=== PATIENT | male | born 1975 | race Caucasian/White ===

== ENCOUNTER 2024-02-05 06:27 | Day surgery (SDC) | payer BC, SELFPAY ==
[2024-02-05] VITALS (11 sets, daily range): BP systolic 124–154; BP diastolic 68–95; BMI 37.5
[2024-02-05] MEDS: NORMOSOL-R 1000 IV (10:58)
[2024-02-05] MEDS: TYLENOL 1000 MG PO (10:58)
--- NOTE | 2024-02-05 14:47 | W.SUR.PREOP ---
Pre-Operative Surgical Note
-
I have examined this patient prior to the performance of the scheduled procedure.
The patient's condition is unchanged from the time of the current History and
Physical and the patient is able to undergo the scheduled procedure.
--- NOTE | 2024-02-05 14:47 | W.IMMPOSTOP ---
Surgical Immed Post Op Note
-
Primary Surgeon: Tom Reina MD
Assisting Surgeon: None
Pre-op Diagnosis: Right femoral hernia
Post-op Diagnosis: Same
Procedure Performed: Robotic right femoral hernia repair with mesh
Anesthesia Type: General
Specimen / Cultures: None
Estimated Blood Loss: 11 cc
Complications: Injury to a right inferior epigastric vein. Suture-ligated
Operative Findings: Significant amount of preperitoneal fat which made dissection over the bladder a little bit challenging, there was an injury to the right inferior epigastric vein given its location this was likely an accessory vein. This was
suture-ligated. We achieved a critical view of the myopectineal orifice. A small femoral hernia was identified and the contents reduced. There was also a small cord lipoma that was reduced and resected. There was no indirect or direct
components. The floor was reinforced with an extra-large Bard 3D max mid weight mesh
--- NOTE | 2024-02-05 14:51 | OR.RPT ---
Operative Report
Operative Report
Patient Name: Vadim Multani Jr.
: 1975
Date of Operation: 02/05/2024
Preoperative Diagnosis: Right femoral hernia
Postoperative Diagnosis: Same
Procedure(s):
Robotic right femoral hernia Repair with mesh, (EKATERINA approach)
Surgeon(s):
Dr. Reina
Mold Repair Technician(s):
GAYATHRI Jones
Anesthesia: General
Estimated Blood Loss: 11 cc
Urine Output: None
Drains/Lines/Implants: X-Large 3D Max Bard mid weight mesh
Specimens: None
Indication for surgery: The patient has a history of groin pain and noted to have a right femoral hernia on ultrasound imaging. Unable to appreciate on physical exam due to body habitus. Following review of therapeutic options they has elected to
undergo a minimally invasive repair.
Operative Findings: Significant amount of preperitoneal fat which made dissection, particularly over the bladder a little bit challenging, there was an injury to the right inferior epigastric vein given its location this was likely an accessory
bundle vein. This was suture-ligated. We achieved a critical view of the myopectineal orifice. A small femoral hernia was identified and the contents reduced. There was also a small cord lipoma that was reduced and resected. There was no
indirect or direct components. The floor was reinforced with an extra-large Bard 3D max mid weight mesh
Details of the operation:
The patient was brought to the Operating Room and placed in the supine position with the arms tucked. IV antibiotics were infused and Venodyne stockings placed. Following uneventful induction of general endotracheal anesthesia, an orogastric tube
were placed. The abdomen was prepped and draped in the usual sterile fashion. The abdomen was entered using a Veress technique which required 4 passes, pneumoperitoneum to 15 mmHg was obtained without difficulty. The patient was placed in roughly
15 degrees Trendelenburg position. An 8mm trochar was passed through the abdominal wall roughly 20 cm cephalad to the inguinal canal. We then confirmed that no inadvertent injury was made while passing the trocar or Veress needle. We then placed
two additional 8 mm ports in the left upper and right upper quadrants. We then docked the robot with a Prograsper in the left hand port and monopolar scissors in the right. No hernias were readily apparent at the start of the case. We then began
by creating a flap at the level of the ASIS laterally working our way medially to the medial umbilical fold. Staying onto the peritoneum we were able to circumferentially dissect the peritoneum and and peel it off of the underlying spermatic cord
and testicular vessels, taking care to preserve them. Medially we identified the midline pubis as well as Manoj's ligament and ensured to dissect 2 cm below the pubic rim over the bladder. During her dissection there was a small sharp injury to a
fairly sizable vein running fairly medially. This was controlled very quickly with pressure from the prograsper, which I then suture-ligated. After further dissection this appeared to be an accessory inferior epigastric bundle of which we likely
injured the vein. After exposure of the entire myopectineal orifice we identified and reduced: A small femoral hernia, and a small cord lipoma which was dissected back, amputated and removed. There were no direct or indirect inguinal hernias
We then fixated an X-large 3D max mid weight mesh with a 2-0 Vicryl stitch at coopers medially and superior laterally. A mondragon mortise vessel was identified and preserved. The flap was then closed with a running 2-0 barbed monocryl suture ensuring
that the tail was cut flush with the medial fat pad so that no barbs were exposed. During the closure of the flap an Angiocath was inserted and 20 cc of quarter percent Marcaine was instilled. The area in the flap cavity was then evacuated of air
confirming that the mesh was flush and there were no folds. A small rent in the peritoneum was noted and closed with 2-0 Vicryl. All needles and instruments were then removed and the robot was undocked. The abdomen was then desufflated, and
pneumoperitoneum evacuated. All skin sites were then closed with 4-0 Monocryl followed by Dermabond. Counts were correct and overall, the patient tolerated the procedure well and was taken to the Recovery Room postoperatively in stable condition.
I was the attending physician and performed the procedure with assistance from the PA above. The assistance of Julia Oakes was required due to the complexity of the procedure. During the procedure Julia assisted with retraction, resection, and
closure of the wound. I was present for all portions of the case except for skin closure.
Tom Reina MD
[2024-02-05] MEDS: DILAUDID 0.25 MG IV (15:02)
--- NOTE | 2024-02-05 16:25 | SUR.PHASEI ---
Dr. Naidu notified about sat's dropping into the mid 80's. IS given. Sat's range 86-96%. Awake, has CPAP at home and uses it. Okay to move to [facility].
== END 2024-02-05 17:52 | disposition home or self-care (01) ==
LOC: SDS 06:27
PROVIDERS: ATTENDING PHYSICIAN Surgery
DX: K41.90 Unilateral femoral hernia, without obstruction or gangrene, not specified as recurrent (principal)
CPT/HCPCS: 49550; C1781

== ENCOUNTER 2025-01-10 19:25 | Emergency (ER) | payer BC, SELFPAY ==
[2025-01-10 19:27] VITALS: BP 166/98
[2025-01-10 19:56] LABS: Lactic Acid 0.6 mmol/L (0.7-2.0)
[2025-01-10 20:03] LABS: ALT (SGPT) 26 U/L (0-50); AST (SGOT) 25 U/L (17-59); Albumin 4.3 g/dl (3.5-5.0); Alkaline Phosphatase 65 U/L (38-126); Blood Urea Nitrogen 11 mg/dl (9-20); Calcium 9.3 mg/dl (8.4-10.2); Carbon Dioxide 29 mmol/L (22-30); Chloride 103 mmol/L (98-107); Glucose 109 mg/dl (70-99); Lipase 44 U/L (23-300); Potassium 4.1 mmol/L (3.5-5.1); Sodium 141 mmol/L (135-145); Total Protein 7.4 g/dl (6.3-8.2); eGFR > 60.00
[2025-01-10 20:14] LABS: % Basophils 0.2 % (0-2); % Eosinophils 0.5 % (0-6); % Immature Granulocytes 0.3 % (0-0.5); % Lymphocytes 11.2 % (20.5-51.1); % Monocytes 8.8 % (1.7-9.3); Absolute Eosinophils 0.1 10^3/uL (0-0.7); Absolute Lymphocytes 1.7 10^3/uL (1.2-3.4); Absolute Monocytes 1.4 10^3/uL (0.1-0.6); Absolute Neutrophils 12.2 10^3/uL (1.4-6.5); Hematocrit 40.9 % (39.0-52.0); Hemoglobin 13.8 g/dL (13.0-18.0); Mean Corp Hgb Conc. 33.7 g/dL (33.0-37.0); Mean Corpuscular Volume 91.9 fL (80.0-94.0); Nucleated Red Blood Cells % 0 % (-); Platelet Count 283 10^3/uL (130-400); Red Blood Cell Count 4.45 10^6/uL (4.70-6.10); Red Cell Dist. Width 13.1 % (11.5-14.5); White Blood Cell Count 15.5 10^3/uL (4.8-10.8)
--- NOTE | 2025-01-10 23:03 | ED.GENMED ---
History of Present Illness
General
Chief Complaint: Abdominal Pain
Source: patient
Exam Limitations: none
Time Seen by Provider: 01/10/25 22:58
Nursing documentation reviewed up to this point in time: agreed with
History of Present Illness
History of Present Illness:
49-year-old male with a past medical history of hyperlipidemia, Perez's esophagus, IBS, ADHD who presents emergency department today with concerns of right-sided abdominal pain starting yesterday. Patient reports that he went to the [facility]
yesterday when he started to feel right-sided abdominal cramping. He states he felt like he had a bowel movement however when he went to the bathroom, did not have any bowel movements. He denies any diarrhea. Patient states that the pain got
slightly better however when he went home that night, the pain returned he had trouble sleeping at night due to the pain. He woke up this with the pain persisted. He went to urgent care and was sent here right away for further evaluation. Patient
states that he has had intermittent subjective fevers as well as chills. Patient has had a right femoral hernia repair in the past with denies any other intra-abdominal surgeries. Patient denies any burning with urination, dysuria, flank pain.
Patient denies any sick contacts. Patient is a travel to the country. Patient denies any chest pain or shortness of breath. Patient denies any swelling or pain in his lower extremities.
Review of Systems
Review of Systems
All Other Systems: ROS reviewed and negative except as documented in HPI and ROS
Phy Exam
Physical Exam
Physical Exam:
General: Patient is well appearing and in no acute distress; non-toxic
Skin: Warm and dry, no rashes or lesions
Head: Normocephalic, atraumatic
Eyes: Sclera non-icteric. EOMs intact.
Cardiac: Regular rate and rhythm, no murmur
Pulm: Normal respiratory effort
Abdomen: Periumbilical abdominal tenderness palpation, right lower quadrant tenderness palpation, no rebound tenderness, guarding present. No CVA tenderness bilaterally.
Neuro: CN II-XII intact, no focal neurologic deficits.
Psychiatric: Appropriate mood and affect.
Course
Orders/Labs/Results
Orders:
Orders
01/10/25 19:34
Complete Blood Count/With Diff Urgent
Lactic Acid Urgent
01/10/25 19:35
Comprehensive Metabolic Panel Urgent
Lipase Urgent
01/10/25 23:10
0.9% Sodium Chloride 1000 ml [Nss] 1,000 ml IV BOLUS
Ketorolac [Toradol] 30 mg IV NOW STA
01/10/25 23:11
CT Abd/pelvis W Iv Cont Urgent
Comment:
Reason For Exam: RLQ ab pain
01/11/25 01:20
Lactic Acid Urgent
01/11/25 01:37
Amoxicillin 875 mg/Clav 125 mg [Augmentin 875 mg/125 mg] 1 tablet PO NOW STA
Abnormal Lab Results
01/10/25 01/10/25
19:34 19:35
WBC 15.5 H 10^3/uL
(4.8-10.8)
RBC 4.45 L 10^6/uL
(4.70-6.10)
Absolute Neuts (auto) 12.2 H 10^3/uL
(1.4-6.5)
Absolute Monos (auto) 1.4 H 10^3/uL
(0.1-0.6)
Neutrophils % 79.0 H %
(42.2-75.2)
Lymphocytes % 11.2 L %
(20.5-51.1)
Creatinine 0.6 L mg/dL
(0.7-1.3)
Glucose 109 H mg/dl
(70-99)
Lactic Acid 0.6 L mmol/L
(0.7-2.0)
01/10/25 19:34
01/10/25 19:35
Vital Signs
Initial and Last Documented VS:
Initial Vital Signs
Temp Pulse Resp BP Pulse Ox
99.9 F 85 20 166/98 99
01/10/25 19:27 01/10/25 19:27 01/10/25 19:27 01/10/25 19:27 01/10/25 19:27
Last Documented Vital Signs
Temp Pulse Resp BP Pulse Ox
99.0 F 80 18 145/63 95
01/10/25 23:45 01/11/25 01:30 01/11/25 01:30 01/11/25 01:30 01/11/25 01:30
MDM/Problems Addressed
Differential Diagnosis Includes:
Differentials include appendicitis, gastritis, biliary colic/acute cholecystitis, IBS exacerbation, constipation
MDM/Problems Addressed:
49-year-old male presents emergency department with concerns of right lower quadrant abdominal pain, history as above. Will give IV fluids and a dose of Toradol and reassess. Will send for CAT scan. Leukocytosis noted.
CT scan reveals colitis in a pattern that may suggest ischemia. Highly doubt ischemic colitis and mesenteric ischemia considering patient has no rectal pain, no diarrhea, and has a normal lactic acid. Considering patient is stable, afebrile, will
discharge oral antibiotics. Patient stable for discharge. Augmentin sent to pharmacy. Case and treatment plan reviewed with my attending.
Chronic conditions affecting care:
ibs, migraines, adhd
*Pulse Oximetry
Patient hypoxic: no
*Critical Care Note
Total Time (30-74mins, 75-104mins- exclusive of procedures): Not Applicable
ED Attending Note
-
Portions of this chart may have been created with voice recognition software.� Occasional wrong word or��sound alike� substitutions may have occurred due to the inherent limitations of voice recognition software.
Discharge Plan
Departure
Patient Disposition: Home (Routine Discharge)
Date of Disposition: 01/11/25
Time of Disposition: 01:39
Patient with high blood pressure during this ER visit?: Yes
Condition: Good
Discharge Problem:
Right sided colitis
Instructions: Colitis - Discharge instructions, BLOOD PRESSURE
Prescriptions:
New
amoxicillin-pot clavulanate 875-125 mg tablet
1 tab PO BID 10 Days Qty: 20 0RF
No Action
multivitamin Tablet
1 tab PO DAILY
cetirizine [Aller-Ginny] 10 mg Tablet
10 mg PO DAILY
ibuprofen 800 mg Tablet
800 mg PO Q6H PRN (Reason: pain)
dextroamphetamine-amphetamine [Adderall] 10 mg Tablet
10 mg PO BID
omeprazole 40 mg Capsule,Delayed Release(Dr/Ec)
40 mg PO DAILY
hyoscyamine sulfate 0.125 mg Tablet
0.125 mg PO Q6H PRN (Reason: IBS)
Excedrin Migraine 250-250-65 mg Tablet
2 tab PO Q6H PRN (Reason: migraine)
diltiazem HCl 240 mg Tablet Extended Release 24 Hr
240 mg PO DAILY
rosuvastatin 5 mg Tablet
5 mg PO DAILY
guanfacine 3 mg Tablet Extended Release 24 Hr
3 mg PO DAILY
melatonin 10 mg Tablet
10 mg PO HS
bupropion HCl 450 mg Tablet Extended Release 24 Hr
450 mg PO DAILY
gabapentin 900 mg Tablet Extended Release 24 Hr
900 mg PO DAILY
Super C
1 tab PO DAILY
acetaminophen [acetaminophen] 325 mg tablet
650 mg PO Q6HPRN PRN (Reason: mild pain) Qty: 14 0RF
ibuprofen 600 mg tablet
600 mg PO Q6H PRN (Reason: pain) Qty: 14 0RF
Referrals:
Katheryn Young NP [Family Provider] -
Activity Restrictions/Additional Instructions:
Your CAT scan revealed a right sided colitis. Your lactic acid is normal.
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 Please schedule a follow-up appointment.
Augmentin, antibiotic, has been sent to pharmacy. Please take 1 tablet twice daily for 10 days.
PLEASE RETURN EMERGENCY DEPARTMENT SHOULD YOU DEVELOP RECTAL BLEEDING, DARK TARRY STOOLS, FEVERS OR CHILLS, ACUTE NEGATIVE PAIN, CHEST PAIN, SHORTNESS OF BREATH, DIZZINESS, LIGHTHEADEDNESS, OR ANY OTHER SIGNS OR SYMPTOMS WORRISOME TO YOU.
Interventions
Interventions:
*Risk Screen - Suicide Last Done: 01/11/25 01:57
*General Assessment Last Done: 01/10/25 19:27
*Neglect/Abuse Screening Last Done: 01/11/25 01:57
*ED- Fall Risk Assessment Last Done: 01/11/25 01:57
*ED COVID-19 Vaccine History Last Done: 01/11/25 01:57
*Nursing Disposition Last Done: 01/11/25 01:57
EE-Vesodl-Czunpqieme Assessment Last Done: 01/10/25 23:46
Discharge Date and Time
Discharge Date/Time: 01/11/25 01:58
Print Language: UPPER SORBIAN
[2025-01-10 23:28] VITALS: BP 173/75
[2025-01-10] MEDS: NSS 1000 IV (23:33)
[2025-01-10] MEDS: TORADOL 30 MG IV (23:35)
[2025-01-10 23:45] VITALS: BMI 36.5
[2025-01-11 01:30] VITALS: BP 145/63
[2025-01-11 01:38] LABS: Lactic Acid 0.7 mmol/L (0.7-2.0)
[2025-01-11] MEDS: AUGMENTIN 875 MG/125 MG 1 TABLET PO (01:48)
== END 2025-01-11 01:58 | disposition home or self-care (01) ==
LOC: EMR 19:25
PROVIDERS: Emergency Medicine; Physician Assistant; EMERGENCY PHYSICIAN Emergency Medicine; FAMILY PHYSICIAN Nurse Practitioner Family
DX: K52.9 Noninfective gastroenteritis and colitis, unspecified (principal); R03.0 Elevated blood-pressure reading, without diagnosis of hypertension; E78.5 Hyperlipidemia, unspecified; G43.909 Migraine, unspecified, not intractable, without status migrainosus; F90.9 Attention-deficit hyperactivity disorder, unspecified type
CPT/HCPCS: 99285; 96374; 96361; 74177; 80053; 83605; 83690; 85025; Q9967